=== PATIENT | male | born 1970 | race Caucasian/White ===

== ENCOUNTER 2017-01-29 12:58 | Inpatient (IN) | payer OTHER ==
[2017-01-29 14:20] VITALS: BMI 21.7
--- NOTE | 2017-01-29 17:14 | HP ---
CIWA Score - CIWA Score Nausea/Vomitin Muscle Tremors: 4-Moderate,w/Arms Extend Anxiety: 4-Mod. Anxious/Guarded Agitation: 4-Moderately Restless Paroxysmal Sweats: 2 Orientation: 1-Uncertain about Date Tacttile Disturbances: 0-None Auditory Disturbances: 0-None Visual Disturbances: 0-None Headache: 1-Very Mild CIWA-Ar Total Score: 18 Admission ROS BHS - HPI Chief Complaint: WITHDRAWAL SX Allergies/Adverse Reactions: Allergies Allergy/AdvReac Type Severity Reaction Status Date / Time No Known Allergies Allergy Verified 01/29/17 16:50 History of Present Illness: 46 YEARS OLD MALE WITH LONG HISTORY OF ALCOHOL NICOTINE DEPENDENCE HAS HEPATITIS C, GERD, ALCOHOL RELATED SEIZURE, SPLEEN REMOVED, RIGHT CORNEAL TRAUMA AND ANXIETY, ON METHADONE PROGRAM 130 MG IS ADMITTED TO DETOX Exam Limitations: No Limitations - Ebola screening Have you traveled outside of the country in the last 21 days: No Have you had contact with anyone from an Ebola affected area: No Have you been sick,other than usual withdrawal symptoms: No Do you have a fever: No - Review of Systems Constitutional: Loss of Appetite, Changes in sleep, Unintentional Wgt. Loss, Unexplained wgt Loss EENT: reports: No Symptoms Reported Respiratory: reports: No Symptoms reported Cardiac: reports: No Symptoms Reported GI: reports: Nausea, Poor Appetite, Poor Fluid Intake, Vomiting, Indigestion, Abdominal cramping : reports: No Symptoms Reported Musculoskeletal: reports: No Symptoms Reported Integumentary: reports: No Symptoms Reported Neuro: reports: Seizure (11/2016 NO TREATMENT), Tremors Endocrine: reports: No Symptoms Reported Hematology: reports: No Symptoms Reported Psychiatric: reports: Judgement Intact, Depressed Other Systems: Reviewed and Negative Patient History - Patient Medical History Hx Anemia: No Hx Asthma: No Hx Chronic Obstructive Pulmonary Disease (COPD): No Hx Cancer: No Hx Cardiac Disorders: No Hx Congestive Heart Failure: No Hx Hypertension: No Hx Hypercholesterolemia: No Hx Pacemaker: No HX Cerebrovascular Accident: No Hx Seizures: Yes (11/2016 ALCOHOL WITHDRAWAL) Hx Dementia: No Hx Diabetes: No Hx Gastrointestinal Disorders: Yes Hx Liver Disease: No Hx Genitourinary Disorders: No Hx Sexually Transmitted Disorders: No Hx Renal Disease (ESRD): No Hx Thyroid Disease: No Hx Human Immunodeficiency Virus (HIV): No Hx Hepatitis C: Yes Hx Depression: Yes Hx Suicide Attempt: No Hx Bipolar Disorder: No Hx Schizophrenia: No - Patient Surgical History Past Surgical History: Yes Hx Neurologic Surgery: No Hx Cataract Extraction: Yes (RIGHT TRAUMA NO VISION CHANGE) Hx Cardiac Surgery: No Hx Lung Surgery: No Hx Breast Surgery: No Hx Breast Biopsy: No Hx Abdominal Surgery: Yes (2012 SPLEEN REMOVED DUE TO TRAUMA) Hx Appendectomy: No Hx Cholecystectomy: No Hx Genitourinary Surgery: No Hx Orthopedic Surgery: No Anesthesia Reaction: No - PPD History Previous Implant?: Yes Documented Results: Negative w/o proof Implanted On Prior [facility] Admission?: No PPD to be Administered?: Yes - Smoking Cessation Smoking history: Current every day smoker Have you smoked in the past 12 months: Yes Aproximately how many cigarettes per day: 20 Cigars Per Day: 0 Hx Chewing Tobacco Use: No Initiated information on smoking cessation: Yes 'Breaking Loose' booklet given: 01/29/17 - Substance & Tx. History Hx Alcohol Use: Yes Hx Substance Use: Yes Substance Use Type: Alcohol, Heroin, Marijuana Hx Substance Use Treatment: Yes (11/2016 [place]) - Substances Abused Alcohol Route: Oral Frequency: Daily Amount used: GALLON VOLKA Age of first use: 19 Date of Last Use: 01/29/17 Marijuana/Hashish Route: Smoking Frequency: Daily Amount used: 1 JOINT Age of first use: 17 Date of Last Use: 01/28/17 Family Disease History - Family Disease History Family Disease History: Heart Disease: Father (), Mother (), Other: Father, Mother, Brother (NO CONTACT), Sister (/AGE 3) Admission Physical Exam [facility] - Vital Signs Vital Signs: Vital Signs - 24 hr 01/29/17 14:16 Temperature 98.0 F Pulse Rate 85 Respiratory 14 Rate Blood Pressure 131/81 - Physical General Appearance: Yes: Appropriately Dressed, Moderate Distress, Alcohol on Breath, Thin, Tremorous, Irritable, Sweating, Anxious HEENTM: Yes: Hearing grossly Normal, Normal ENT Inspection, Normocephalic, Normal Voice Respiratory: Yes: Chest Non-Tender, Lungs Clear, Normal Breath Sounds, No Respiratory Distress, No Accessory Muscle Use Neck: Yes: Supple, Trachea in good position Breast: Yes: Breasts Symetrical Cardiology: Yes: Regular Rhythm, Regular Rate, S1, S2 Abdominal: Yes: Non Tender, Soft Genitourinary: Yes: Within Normal Limits Back: Yes: Normal Inspection Musculoskeletal: Yes: full range of Motion, Gait Steady Extremities: Yes: Normal Range of Motion, Non-Tender, Tremors Neurological: Yes: Alert, Motor Strength 5/5, Normal Response, Depressed Affect Integumentary: Yes: Warm Lymphatic: Yes: Within Normal Limits - Diagnostic (1) Alcohol dependence with uncomplicated withdrawal Current Visit: Yes Status: Acute (2) GERD (gastroesophageal reflux disease) Current Visit: Yes Status: Chronic Qualifiers: Esophagitis presence: without esophagitis Qualified Code(s): K21.9 - Gastro-esophageal reflux disease without esophagitis (3) Methadone maintenance therapy patient Current Visit: Yes Status: Chronic Comment: 130 MG PO DAILY VERIFICATION PENDING (4) Hepatitis C Current Visit: Yes Status: Chronic Qualifiers: Viral hepatitis chronicity: carrier Qualified Code(s): B18.2 - Chronic viral hepatitis C (5) Nicotine dependence Current Visit: Yes Status: Acute Qualifiers: Nicotine product type: cigarettes Substance use status: in withdrawal Qualified Code(s): F17.213 - Nicotine dependence, cigarettes, with withdrawal (6) Weight loss Current Visit: Yes Status: Acute (7) Anxiety Current Visit: Yes Status: Suspected Cleared for Admission [facility] - Detox or Rehab [facility] Level of Care: Medically Managed Detox Regimen/Protocol: Librium [facility] Breath Alcohol Content Breath Alcohol Content: 0.273 Urine Drug Screen - Control Is Test Valid: Yes - Results Drug Screen Negative: No Urine Drug Screen Results: THC-Marijuana, MET-Methamphetamine, MTD-Methadone
[2017-01-29] MEDS ORDERED: MAG HYDROX/AL HYDROX/SIMETH 30 ML UNIT-DOSE CUP PO PRN (17:29)
[2017-01-29] MEDS ORDERED: ACETAMINOPHEN 325 MG TABLET (FP) PO PRN (17:29)
[2017-01-29] MEDS ORDERED: MAGNESIUM HYDROX 2400MG/30ML ORAL SUSPENSION 30 ML CUP PO PRN (17:29)
[2017-01-29] MEDS ORDERED: MENTHOL/PHENOL 1 EACH UD MM PRN (17:29)
[2017-01-29] MEDS ORDERED: MAGNESIUM CITRATE 300 ML BOTTLE PO PRN (17:29)
[2017-01-29] MEDS ORDERED: guaiFENesin/D-METHORPHAN HB 10 ML UNIT-DOSE CUPS PO PRN (17:29)
[2017-01-29] MEDS ORDERED: P-EPHED 60MG/TRIPROLIDI 2.5MG TABLET PO PRN (17:29)
[2017-01-29] MEDS ORDERED: LOPERAMIDE HCL 2 MG CAPSULE PO PRN (17:29)
[2017-01-29] MEDS ORDERED: NICOTINE POLACRILEX 4 MG GUM BUC PRN (17:29)
[2017-01-29] MEDS ORDERED: chlordiazePOXIDE HCL 25 MG CAPSULE PO ONE (17:29)
[2017-01-29] MEDS: ONDANSETRON *ODT* 4 MG TABLET SL PRN (18:02)
[2017-01-29 20:14] LABS: URINE APPEARANCE CLOUDY; URINE BLOOD NEGATIVE (NEGATIVE); URINE COLOR AMBER; URINE GLUCOSE (UA) NEGATIVE (NEGATIVE); URINE KETONE NEGATIVE (NEGATIVE); URINE LEUK ESTERASE 2+ (NEGATIVE); URINE NITRITE NEGATIVE (NEGATIVE); URINE PROTEIN 2+ (NEGATIVE); URINE UROBILINOGEN 4.0 E.U/dl mg/dL (0.2-1.0)
[2017-01-29 21:09] LABS: URINE MUCUS RARE; URINE RBC 11 /hpf (0-3); URINE WBC 26 /hpf (3-5)
[2017-01-29] MEDS: THIAMINE HCL 100 MG TABLET (FP) PO SCH (22:19)
[2017-01-29] MEDS: RANITIDINE HCL 150 MG TABLET (FP) PO SCH (22:19)
[2017-01-29] MEDS: chlordiazePOXIDE HCL 25 MG CAPSULE PO SCH (22:19)
[2017-01-30] MEDS: ONDANSETRON *ODT* 4 MG TABLET SL PRN (00:15)
[2017-01-30] MEDS: chlordiazePOXIDE HCL 25 MG CAPSULE PO PRN ×4 (02:06→19:11)
[2017-01-30] MEDS: chlordiazePOXIDE HCL 25 MG CAPSULE PO SCH ×4 (05:11→22:13)
[2017-01-30] MEDS ORDERED: TRIMETHOBENZAMIDE HCL 200MG/2ML INJ IM PRN (09:09)
--- NOTE | 2017-01-30 09:24 | PN ---
[facility] CIWA - CIWA Score Nausea/Vomitin Muscle Tremors: 4-Moderate,w/Arms Extend Anxiety: 3 Agitation: 3 Paroxysmal Sweats: 4-Forehead w/Sweat Beads Orientation: 0-Oriented Tacttile Disturbances: 2-Mild Itch/Numbness/Burn Auditory Disturbances: 0-None Visual Disturbances: 0-None Headache: 0-None Present CIWA-Ar Total Score: 22 BHS Progress Note (SOAP) Subjective: interrupted sleep, sweats, shakes , nausea, vomiting Objective: 01/30/17 09:21 Vital Signs Temperature 98.8 F 01/30/17 06:13 Pulse Rate 52 L 01/30/17 06:13 Respiratory Rate 18 01/30/17 06:13 Blood Pressure 163/86 01/30/17 06:13 O2 Sat by Pulse Oximetry (%) Laboratory Tests 01/29/17 20:02 Urine Color Cecy Urine Appearance Cloudy Urine pH 6.0 Ur Specific [place] 1.025 Urine Protein 2+ H Urine Glucose (UA) Negative Urine Ketones Negative Urine Blood Negative Urine Nitrite Negative Urine Bilirubin 2.0 Urine Urobilinogen 4.0 e.u/dl Ur Leukocyte Esterase 2+ H Urine RBC 11 Urine WBC 26 Ur Epithelial Cells Moderate Urine Mucus Rare pending labs pt aox3 with nausea , vomiting and tremors Assessment: 01/30/17 09:22 withdrawal sx's hepc gerd otp Plan: cont. detox increase fluids tigan 200mg im librium 50mg now methadone 130mg po daily
[2017-01-30] MEDS ORDERED: METHADONE HCL 10 MG TABLET PO ONE (09:28)
[2017-01-30 09:37] LABS: MCH 33.6 pg (25.7-33.7); MCHC 33.6 g/dl (32.0-35.9); MEAN PLT VOLUME 11.4 fl (7.5-11.1); PLATELET COUNT 93 K/MM3 (134-434); RDW 16.8 % (11.9-15.9); WHITE BLOOD COUNT 10.8 K/mm3 (4.0-10.0)
[2017-01-30] MEDS ORDERED: METHADONE HCL 10 MG TABLET ONE (09:40)
[2017-01-30] MEDS ORDERED: METHADONE HCL 40 MG DISPERSABLE TABLET ONE (09:41)
[2017-01-30] MEDS ORDERED: METHADONE 120 MG, METHADONE 10 MG PO ONE (09:45)
[2017-01-30] MEDS ORDERED: chlordiazePOXIDE HCL 25 MG CAPSULE PO ONE (09:45)
[2017-01-30] MEDS: RANITIDINE HCL 150 MG TABLET (FP) PO SCH ×2 (09:48→22:12)
[2017-01-30 10:02] LABS: ALBUMIN 3.2 g/dl (3.4-5.0); ALK PHOS 372 U/L (45-117); ANION GAP 11 (8-16); BILIRUBIN,TOTAL 5.5 mg/dL (0.2-1.0); CALCIUM 8.5 mg/dL (8.5-10.1); CO2 26 mmol/L (21-32); CREATININE 0.6 mg/dL (0.7-1.3); GLUCOSE,RANDOM 62 mg/dL (74-106); SGOT/AST 316 U/L (15-37); SGPT/ALT 81 U/L (12-78)
[2017-01-30] MEDS: NICOTINE 21 MG/24 HOURS TOPICAL PATCH TD SCH (10:55)
[2017-01-30] MEDS: PRENATAL VITAMINS W/ FOLIC ACID TABLET (FP) PO SCH (10:55)
--- NOTE | 2017-01-30 12:56 | EKG ---
Test Reason : Blood Pressure : / mmHG Vent. Rate : 097 BPM Atrial Rate : 097 BPM P-R Int : 158 ms QRS Dur : 102 ms QT Int : 412 ms P-R-T Axes : 059 021 059 degrees QTc Int : 523 ms NORMAL SINUS RHYTHM PROLONGED QT ABNORMAL ECG NO PREVIOUS ECGS AVAILABLE Confirmed by MD CHUCKY, JOSE ([id number]) on 01/30/2017 12:55:52 PM Referred By: Confirmed By:JOSE LOCKE MD
--- NOTE | 2017-01-30 18:54 | CONSULT ---
[facility] Psychiatric Consult - Data Date of interview: 01/30/17 Admission source: [facility] Identifying data: Patient is approached at bedside for psychiatric evaluation.He refused.Nursing staff is made aware.
[2017-01-30] MEDS: THIAMINE HCL 100 MG TABLET (FP) PO SCH (22:12)
[2017-01-30] MEDS: diphenhydrAMINE HCL 50 MG CAPSULE PO PRN (22:13)
--- NOTE | 2017-01-31 01:49 | PN ---
[facility] Progress Note Note: Laboratory Last Values WBC 10.8 K/mm3 (4.0-10.0) H 01/30/17 07:00 RBC 4.07 M/mm3 (4.00-5.60) 01/30/17 07:00 Hgb 13.7 GM/dL (11.7-16.9) 01/30/17 07:00 Hct 40.7 % (35.4-49) 01/30/17 07:00 MCV 100.0 fl (80-96) H 01/30/17 07:00 MCH 33.6 pg (25.7-33.7) 01/30/17 07:00 MCHC 33.6 g/dl (32.0-35.9) 01/30/17 07:00 RDW 16.8 % (11.9-15.9) H 01/30/17 07:00 Plt Count 93 K/MM3 (134-434) L 01/30/17 07:00 MPV 11.4 fl (7.5-11.1) H 01/30/17 07:00 Sodium 138 mmol/L (136-145) 01/30/17 07:00 Potassium 3.2 mmol/L (3.5-5.1) L 01/30/17 07:00 Chloride 101 mmol/L (98-107) 01/30/17 07:00 Carbon Dioxide 26 mmol/L (21-32) 01/30/17 07:00 Anion Gap 11 (8-16) 01/30/17 07:00 BUN 10 mg/dL (7-18) 01/30/17 07:00 Creatinine 0.6 mg/dL (0.7-1.3) L 01/30/17 07:00 Creat Clearance w eGFR > 60 (>60) 01/30/17 07:00 Random Glucose 62 mg/dL (74-106) L 01/30/17 07:00 Calcium 8.5 mg/dL (8.5-10.1) 01/30/17 07:00 Total Bilirubin 5.5 mg/dL (0.2-1.0) H 01/30/17 07:00 AST 316 U/L (15-37) H 01/30/17 07:00 ALT 81 U/L (12-78) H 01/30/17 07:00 Alkaline Phosphatase 372 U/L (45-117) H 01/30/17 07:00 Total Protein 7.0 g/dl (6.4-8.2) 01/30/17 07:00 Albumin 3.2 g/dl (3.4-5.0) L 01/30/17 07:00 Urine Color Cecy 01/29/17 20:02 Urine Appearance Cloudy 01/29/17 20:02 Urine pH 6.0 (5.0-8.0) 01/29/17 20:02 Ur Specific [place] 1.025 (1.005-1.025) 01/29/17 20:02 Urine Protein 2+ (NEGATIVE) H 01/29/17 20:02 Urine Glucose (UA) Negative (NEGATIVE) 01/29/17 20: Urine Ketones Negative (NEGATIVE) 01/29/17 20: Urine Blood Negative (NEGATIVE) 01/29/17 20:02 Urine Nitrite Negative (NEGATIVE) 01/29/17 20:02 Urine Bilirubin 2.0 (NEGATIVE) 01/29/17 20: Urine Urobilinogen 4.0 e.u/dl mg/dL (0.2-1.0) 01/29/17 20:02 Ur Leukocyte Esterase 2+ (NEGATIVE) H 01/29/17 20:02 Urine RBC 11 /hpf (0-3) 01/29/17 20:02 Urine WBC 26 /hpf (3-5) 01/29/17 20:02 Ur Epithelial Cells Moderate /hpf (FEW) 01/29/17 20:02 Urine Mucus Rare 01/29/17 20:02 k dur 20 meq po bid d/c tylenol due to transaminasemia encourage oral fluid repeat cbc,cmp,inr in am
[2017-01-31] MEDS: chlordiazePOXIDE HCL 25 MG CAPSULE PO PRN (03:03)
[2017-01-31] MEDS ORDERED: METHADONE HCL 10 MG TABLET ONE (05:23)
[2017-01-31] MEDS ORDERED: METHADONE HCL 40 MG DISPERSABLE TABLET ONE (05:24)
[2017-01-31] MEDS: chlordiazePOXIDE HCL 25 MG CAPSULE PO SCH ×3 (05:30→17:26)
[2017-01-31] MEDS: METHADONE 120 MG, METHADONE 10 MG PO SCH (05:30)
[2017-01-31] MEDS ORDERED: METHADONE HCL 40 MG DISPERSABLE TABLET PO SCH (06:00)
[2017-01-31] MEDS: RANITIDINE HCL 150 MG TABLET (FP) PO SCH ×2 (10:21→22:33)
[2017-01-31] MEDS: NICOTINE 21 MG/24 HOURS TOPICAL PATCH TD SCH (10:21)
[2017-01-31] MEDS: POTASSIUM CHLORIDE TABS 20 MEQ TABLET.ER (FP) PO SCH ×2 (10:21→22:33)
[2017-01-31] MEDS: PRENATAL VITAMINS W/ FOLIC ACID TABLET (FP) PO SCH (10:21)
--- NOTE | 2017-01-31 14:10 | PN ---
[facility] CIWA - CIWA Score Nausea/Vomitin-No Nausea/No Vomiting Muscle Tremors: 4-Moderate,w/Arms Extend Anxiety: 4-Mod. Anxious/Guarded Agitation: 2 Paroxysmal Sweats: 3 Orientation: 0-Oriented Tacttile Disturbances: 2-Mild Itch/Numbness/Burn Auditory Disturbances: 2-Mild Harshness/Frighten Visual Disturbances: 0-None Headache: 0-None Present CIWA-Ar Total Score: 17 S Progress Note (SOAP) Subjective: Interrupted sleep, Anxious, Sweating, Tremors, Fatigue. Objective: PT. A & O X 3, OBSERVED AMBULATING ON UNIT. NO ACUTE DISTRESS. 01/31/17 14:07 Vital Signs Temperature 98.5 F 01/31/17 10:18 Pulse Rate 93 H 01/31/17 10:18 Respiratory Rate 16 01/31/17 10:18 Blood Pressure 126/86 01/31/17 10:18 O2 Sat by Pulse Oximetry (%) Laboratory Tests 01/29/17 01/30/17 01/30/17 20:02 07:00 07:00 WBC 10.8 H RBC 4.07 Hgb 13.7 Hct 40.7 MCV 100.0 H MCH 33.6 MCHC 33.6 RDW 16.8 H Plt Count 93 L MPV 11.4 H Sodium 138 Potassium 3.2 L Chloride 101 Carbon Dioxide 26 Anion Gap 11 BUN 10 Creatinine 0.6 L Creat Clearance w eGFR > 60 Random Glucose 62 L Calcium 8.5 Total Bilirubin 5.5 H AST 316 H ALT 81 H Alkaline Phosphatase 372 H Total Protein 7.0 Albumin 3.2 L Urine Color Cecy Urine Appearance Cloudy Urine pH 6.0 Ur Specific [place] 1.025 Urine Protein 2+ H Urine Glucose (UA) Negative Urine Ketones Negative Urine Blood Negative Urine Nitrite Negative Urine Bilirubin 2.0 Urine Urobilinogen 4.0 e.u/dl Ur Leukocyte Esterase 2+ H Urine RBC 11 Urine WBC 26 Ur Epithelial Cells Moderate Urine Mucus Rare RPR Titer 01/30/17 07:00 WBC RBC Hgb Hct MCV MCH MCHC RDW Plt Count MPV Sodium Potassium Chloride Carbon Dioxide Anion Gap BUN Creatinine Creat Clearance w eGFR Random Glucose Calcium Total Bilirubin AST ALT Alkaline Phosphatase Total Protein Albumin Urine Color Urine Appearance Urine pH Ur Specific [place] Urine Protein Urine Glucose (UA) Urine Ketones Urine Blood Urine Nitrite Urine Bilirubin Urine Urobilinogen Ur Leukocyte Esterase Urine RBC Urine WBC Ur Epithelial Cells Urine Mucus RPR Titer Nonreactive LABS NOTED. Assessment: 01/31/17 14:11 WITHDRAWAL SYMPTOMS. Plan: CONTINUE DETOX. INCREASE PO FLUID INTAKE. REPEAT UA, URINE C + S ORDERED.
[2017-01-31] MEDS: diphenhydrAMINE HCL 50 MG CAPSULE PO PRN (22:33)
[2017-01-31] MEDS: chlordiazePOXIDE 5 MG CAPSULE PO SCH (22:33)
[2017-01-31] MEDS: THIAMINE HCL 100 MG TABLET (FP) PO SCH (22:33)
[2017-02-01] MEDS ORDERED: METHADONE HCL 10 MG TABLET ONE (04:51)
[2017-02-01] MEDS ORDERED: METHADONE HCL 40 MG DISPERSABLE TABLET ONE (04:51)
[2017-02-01] MEDS: METHADONE 120 MG, METHADONE 10 MG PO SCH (05:24)
[2017-02-01] MEDS: chlordiazePOXIDE 5 MG CAPSULE PO SCH ×3 (05:24→17:28)
[2017-02-01 10:06] LABS: RDW 16.5 % (11.9-15.9)
[2017-02-01 10:08] LABS: MCH 33.6 pg (25.7-33.7); MCHC 33.1 g/dl (32.0-35.9); MEAN CELL VOLUME 101.8 fl (80-96); MEAN PLT VOLUME 11.7 fl (7.5-11.1); PLATELET COUNT 88 K/MM3 (134-434); WHITE BLOOD COUNT 9.2 K/mm3 (4.0-10.0)
[2017-02-01 10:10] LABS: INR 1.43 (0.82-1.09); PROTHROMBIN TIME (PATIENT) 15.9 SEC (9.98-11.88)
[2017-02-01 10:35] LABS: ALBUMIN 2.9 g/dl (3.4-5.0); ALK PHOS 337 U/L (45-117); ANION GAP 7 (8-16); BILIRUBIN,TOTAL 5.4 mg/dL (0.2-1.0); CO2 27 mmol/L (21-32); CREATININE 0.8 mg/dL (0.7-1.3); GLUCOSE,RANDOM 77 mg/dL (74-106); SGOT/AST 196 U/L (15-37); SGPT/ALT 65 U/L (12-78); TOT PROT 6.4 g/dl (6.4-8.2)
[2017-02-01] MEDS: PRENATAL VITAMINS W/ FOLIC ACID TABLET (FP) PO SCH (10:41)
[2017-02-01] MEDS: NICOTINE 21 MG/24 HOURS TOPICAL PATCH TD SCH (10:41)
[2017-02-01] MEDS: POTASSIUM CHLORIDE TABS 20 MEQ TABLET.ER (FP) PO SCH ×2 (10:41→22:14)
[2017-02-01] MEDS: RANITIDINE HCL 150 MG TABLET (FP) PO SCH ×2 (10:41→22:14)
[2017-02-01 14:25] LABS: PLATELET COMMENT2 NO CLOTTING DETECTED; PLATELET ESTIMATE DECREASED (NORMAL)
--- NOTE | 2017-02-01 16:11 | PN ---
S Progress Note (SOAP) Subjective: Tremor, chills, sweating, interrupted sleep Objective: 02/01/17 16:09 Last Vital Signs Temp Pulse Resp BP Pulse Ox 98.8 F 94 H 16 113/75 02/01/17 13:08 02/01/17 13:08 02/01/17 13:08 02/01/17 13:08 Laboratory Tests 01/29/17 01/30/17 01/30/17 20:02 07:00 07:00 WBC 10.8 H RBC 4.07 Hgb 13.7 Hct 40.7 MCV 100.0 H MCH 33.6 MCHC 33.6 RDW 16.8 H Plt Count 93 L MPV 11.4 H Platelet Estimate Platelet Comment INR Sodium 138 Potassium 3.2 L Chloride 101 Carbon Dioxide 26 Anion Gap 11 BUN 10 Creatinine 0.6 L Creat Clearance w eGFR > 60 Random Glucose 62 L Calcium 8.5 Total Bilirubin 5.5 H AST 316 H ALT 81 H Alkaline Phosphatase 372 H Total Protein 7.0 Albumin 3.2 L Urine Color Cecy Urine Appearance Cloudy Urine pH 6.0 Ur Specific [place] 1.025 Urine Protein 2+ H Urine Glucose (UA) Negative Urine Ketones Negative Urine Blood Negative Urine Nitrite Negative Urine Bilirubin 2.0 Urine Urobilinogen 4.0 e.u/dl Ur Leukocyte Esterase 2+ H Urine RBC 11 Urine WBC 26 Ur Epithelial Cells Moderate Urine Mucus Rare RPR Titer 01/30/17 02/01/17 02/01/17 07:00 07:50 07:50 WBC RBC Hgb Hct MCV MCH MCHC RDW Plt Count MPV Platelet Estimate Platelet Comment INR 1.43 H Sodium 135 L Potassium 3.8 Chloride 101 Carbon Dioxide 27 Anion Gap 7 L BUN 10 Creatinine 0.8 D Creat Clearance w eGFR > 60 Random Glucose 77 D Calcium 9.0 Total Bilirubin 5.4 H AST 196 H D ALT 65 Alkaline Phosphatase 337 H Total Protein 6.4 Albumin 2.9 L Urine Color Urine Appearance Urine pH Ur Specific [place] Urine Protein Urine Glucose (UA) Urine Ketones Urine Blood Urine Nitrite Urine Bilirubin Urine Urobilinogen Ur Leukocyte Esterase Urine RBC Urine WBC Ur Epithelial Cells Urine Mucus RPR Titer Nonreactive 02/01/17 09:00 WBC 9.2 RBC 4.03 Hgb 13.6 Hct 41.0 MCV 101.8 H MCH 33.6 MCHC 33.1 RDW 16.5 H Plt Count 88 L MPV 11.7 H Platelet Estimate Decreased Platelet Comment No clotting detected INR Sodium Potassium Chloride Carbon Dioxide Anion Gap BUN Creatinine Creat Clearance w eGFR Random Glucose Calcium Total Bilirubin AST ALT Alkaline Phosphatase Total Protein Albumin Urine Color Urine Appearance Urine pH Ur Specific [place] Urine Protein Urine Glucose (UA) Urine Ketones Urine Blood Urine Nitrite Urine Bilirubin Urine Urobilinogen Ur Leukocyte Esterase Urine RBC Urine WBC Ur Epithelial Cells Urine Mucus RPR Titer Labs noted: abnormal UA Assessment: 02/01/17 16:10 Withdrawal symptoms Noted with abnormal UA Plan: Continue detox Abnormal UA: encouraged to drink lots of water, repeat UA
[2017-02-01 17:45] LABS: URINE APPEARANCE SLCLOUDY; URINE BLOOD NEGATIVE (NEGATIVE); URINE COLOR AMBER; URINE GLUCOSE (UA) NEGATIVE (NEGATIVE); URINE KETONE NEGATIVE (NEGATIVE); URINE NITRITE NEGATIVE (NEGATIVE); URINE PROTEIN NEGATIVE (NEGATIVE); URINE UROBILINOGEN 4.0 E.U/dl mg/dL (0.2-1.0)
[2017-02-01 17:49] LABS: URINE LEUK ESTERASE 2+ (NEGATIVE)
[2017-02-01 17:52] LABS: URINE MUCUS RARE; URINE RBC 1 /hpf (0-3); URINE WBC 42 /hpf (3-5)
[2017-02-01] MEDS: THIAMINE HCL 100 MG TABLET (FP) PO SCH (22:13)
[2017-02-01] MEDS: diphenhydrAMINE HCL 50 MG CAPSULE PO PRN (22:13)
[2017-02-01] MEDS: chlordiazePOXIDE HCL 10 MG CAPSULE PO SCH (22:13)
--- NOTE | 2017-02-01 22:34 | EKG ---
Test Reason : Blood Pressure : / mmHG Vent. Rate : 075 BPM Atrial Rate : 075 BPM P-R Int : 140 ms QRS Dur : 100 ms QT Int : 408 ms P-R-T Axes : 044 012 040 degrees QTc Int : 455 ms NORMAL SINUS RHYTHM NORMAL ECG WHEN COMPARED WITH ECG OF 29-JAN-2017 16:56, QT HAS SHORTENED Confirmed by DOMENICA POLLOCK MD ([id number]) on 02/01/2017 10:34:28 PM Referred By: Confirmed By:DOMENICA POLLOCK MD
[2017-02-02] MEDS ORDERED: METHADONE HCL 10 MG TABLET ONE (04:37)
[2017-02-02] MEDS ORDERED: METHADONE HCL 40 MG DISPERSABLE TABLET ONE (04:38)
[2017-02-02] MEDS: METHADONE 120 MG, METHADONE 10 MG PO SCH (05:08)
[2017-02-02] MEDS: chlordiazePOXIDE HCL 10 MG CAPSULE PO SCH (05:08)
[2017-02-02 09:06] VITALS: PULSE 49; TEMP 97.1
[2017-02-02 09:07] VITALS: BP 109/74
--- NOTE | 2017-02-02 14:09 | DS ---
[facility] Detox Discharge Summary Admission Date: 01/29/17 Discharge Date: 02/02/17 - History Present History: Alcohol Dependence Additional Comments: PATIENT GOING HOME. PATIENT ADVISED TO CONSIDER 12-STEP / AA OUTPATIENT PROGRAMS FOR AFTERCARE. PATIENT WAS DISCHARGED FROM UNIT IN STABLE MEDICAL CONDITION. Pertinent Past History: Hep C, GERD, Anxiety, MMTP. - Physical Exam Results Vital Signs: Vital Signs Temperature 97.1 F L 02/02/17 09:05 Pulse Rate 49 L 02/02/17 09:05 Respiratory Rate 18 02/02/17 09:05 Blood Pressure 109/74 02/02/17 09:05 O2 Sat by Pulse Oximetry (%) Pertinent Admission Physical Exam Findings: WITHDRAWAL SYMPTOMS. Laboratory Tests 01/29/17 01/30/17 01/30/17 20:02 07:00 07:00 WBC 10.8 H RBC 4.07 Hgb 13.7 Hct 40.7 MCV 100.0 H MCH 33.6 MCHC 33.6 RDW 16.8 H Plt Count 93 L MPV 11.4 H Platelet Estimate Platelet Comment INR Sodium 138 Potassium 3.2 L Chloride 101 Carbon Dioxide 26 Anion Gap 11 BUN 10 Creatinine 0.6 L Creat Clearance w eGFR > 60 Random Glucose 62 L Calcium 8.5 Total Bilirubin 5.5 H AST 316 H ALT 81 H Alkaline Phosphatase 372 H Total Protein 7.0 Albumin 3.2 L Urine Color Cecy Urine Appearance Cloudy Urine pH 6.0 Ur Specific [place] 1.025 Urine Protein 2+ H Urine Glucose (UA) Negative Urine Ketones Negative Urine Blood Negative Urine Nitrite Negative Urine Bilirubin 2.0 Urine Urobilinogen 4.0 e.u/dl Ur Leukocyte Esterase 2+ H Urine RBC 11 Urine WBC 26 Ur Epithelial Cells Moderate Urine Mucus Rare RPR Titer 01/30/17 02/01/17 02/01/17 07:00 07:50 07:50 WBC RBC Hgb Hct MCV MCH MCHC RDW Plt Count MPV Platelet Estimate Platelet Comment INR 1.43 H Sodium 135 L Potassium 3.8 Chloride 101 Carbon Dioxide 27 Anion Gap 7 L BUN 10 Creatinine 0.8 D Creat Clearance w eGFR > 60 Random Glucose 77 D Calcium 9.0 Total Bilirubin 5.4 H AST 196 H D ALT 65 Alkaline Phosphatase 337 H Total Protein 6.4 Albumin 2.9 L Urine Color Urine Appearance Urine pH Ur Specific [place] Urine Protein Urine Glucose (UA) Urine Ketones Urine Blood Urine Nitrite Urine Bilirubin Urine Urobilinogen Ur Leukocyte Esterase Urine RBC Urine WBC Ur Epithelial Cells Urine Mucus RPR Titer Nonreactive 02/01/17 02/01/17 09:00 13:05 WBC 9.2 RBC 4.03 Hgb 13.6 Hct 41.0 MCV 101.8 H MCH 33.6 MCHC 33.1 RDW 16.5 H Plt Count 88 L MPV 11.7 H Platelet Estimate Decreased Platelet Comment No clotting detected INR Sodium Potassium Chloride Carbon Dioxide Anion Gap BUN Creatinine Creat Clearance w eGFR Random Glucose Calcium Total Bilirubin AST ALT Alkaline Phosphatase Total Protein Albumin Urine Color Cecy Urine Appearance Slcloudy Urine pH 7.0 Ur Specific [place] 1.020 Urine Protein Negative Urine Glucose (UA) Negative Urine Ketones Negative Urine Blood Negative Urine Nitrite Negative Urine Bilirubin 4.0 Urine Urobilinogen 4.0 e.u/dl Ur Leukocyte Esterase 2+ H Urine RBC 1 Urine WBC 42 Ur Epithelial Cells Rare Urine Mucus Rare RPR Titer LABS NOTED. - Treatment Hospital Course: Detox Protocol Followed, Detoxed Safely, Responded well, Discharged Condition Good Patient has Accepted a Rehab Referral to: PT. GOING HOME. ADVISED TO CONSIDER 12 -STEP/AA PROGRAMS FOR AFTERCARE. - Medication Discharge Medications: Ambulatory Orders NK [No Known Home Medication] 01/29/17 - Diagnosis (1) Alcohol dependence with uncomplicated withdrawal Status: Acute (2) Nicotine dependence Status: Chronic Qualifiers: Nicotine product type: cigarettes Substance use status: in withdrawal Qualified Code(s): F17.213 - Nicotine dependence, cigarettes, with withdrawal (3) Weight loss Status: Acute (4) GERD (gastroesophageal reflux disease) Status: Chronic Qualifiers: Esophagitis presence: without esophagitis Qualified Code(s): K21.9 - Gastro-esophageal reflux disease without esophagitis (5) Hepatitis C Status: Chronic Qualifiers: Viral hepatitis chronicity: carrier Qualified Code(s): B18.2 - Chronic viral hepatitis C (6) Methadone maintenance therapy patient Status: Chronic (7) Anxiety Status: Suspected - AMA Did Patient Leave Against Medical Advice: No
== END 2017-02-02 09:32 | disposition home or self-care (01) | DRG 773 ==
LOC: YASAS 12:58 → Y3N 17:15 → UNDODISIN 02-02 09:32
PROVIDERS: ADMIT Internal Medicine; ATTEND Internal Medicine
PROC: HZ2ZZZZ Detoxification Services for Substance Abuse Treatment (ICD-10-PCS; principal; 2017-01-29)
DX: F10.230 Alcohol dependence with withdrawal, uncomplicated (principal); F11.20 Opioid dependence, uncomplicated; F17.213 Nicotine dependence, cigarettes, with withdrawal; F41.9 Anxiety disorder, unspecified; K21.9 Gastro-esophageal reflux disease without esophagitis; B18.2 Chronic viral hepatitis C; R82.90 Unspecified abnormal findings in urine; Z86.69 Personal history of other diseases of the nervous system and sense organs; Z90.81 Acquired absence of spleen; Z87.898 Personal history of other specified conditions; R74.0 Nonspecific elevation of levels of transaminase and lactic acid dehydrogenase [LDH]
CPT/HCPCS: 36415; 80053; 81003; 81015; 85027; 85610; 86593; 87086; 87186; 93005; 93010